=== PATIENT | female | born 1980 | race African-American/Black ===

== ENCOUNTER 2017-05-19 21:07 | Emergency (ER) | payer OTHER ==
[2017-05-19 21:12] VITALS: BP 164/101; PULSE 82; RESP 16; TEMP 98.1; O2SAT 98
[2017-05-19] MEDS ORDERED: diphenhydrAMINE 25 MG CAP PO ONE (21:53)
--- NOTE | 2017-05-19 21:54 | EDPHY ---
H & P Stated Complaint: bilat ear pain and MEADOWS Time Seen by Provider: 05/19/17 21:55 HPI/ROS: HPI: This is a 37-year-old female who presents with Chief Complaint: Bilateral ear pressure Location: Bilateral ear Quality: Pressure Duration: 2 days Signs and Symptoms: No fever, no ear discharge, no ear pain, + nasal congestion , no rhinorrhea, no sinus pressure, headache Timing: Sudden Severity: [id number] Context: Patient reports that there are changes in elevation as she drives to work daily that causes pressure in both her ears over the last 2 days accompanied by sinus pressure. She denies any fever, ear pain, ear discharge. She has not been swimming recently. She denies headaches, neck stiffness. She does not have any seasonal allergies. Modifying Factors: None Comment: ROS: see HPI Constitutional: No fever, no chills, no weight loss Eyes: No blurred vision Respiratory: No shortness of breath, no cough Cardiovascular: No chest pain Gastrointestinal: No nausea, no vomiting, no diarrhea Genitourinary: No dysuria Extremities: No myalgias Neurologic: No weakness, no numbness Skin: No rashes Hematologic: No bruising, no bleeding MEDICAL/SURGICAL/SOCIAL HISTORY: Medical history: Generally healthy. Does not take any regular medications. Surgical history: Bilateral carpal tunnel surgery Social history: Employed CONSTITUTIONAL: Extremely well-appearing adult black female, awake and alert, no obvious distress HEENT: Atraumatic and normocephalic, PERRL, EOMI. 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 Oropharynx clear, no exudate and moist pink mucosa. Airway patent. No lymphadenopathy. No meningismus. Cardiovascular: Normal S1/S2, regular rate, regular rhythm, without murmur rub or gallop. PULMONARY/CHEST: Symmetrical and nontender. Clear to auscultation bilaterally. Good air movement. No accessory muscle usage. ABDOMEN: Soft, nondistended, nontender, no rebound, no guarding, no peritoneal signs, no masses or organomegaly. No CVAT. EXTREMITIES: 2/2 pulses, strength 5/5, no deformities, no clubbing, no cyanosis or edema. NEUROLOGICAL: no focal neuro deficits. GCS 15. SKIN: Warm and dry, no erythema. no rash. Good capillary refill. Source: Patient Exam Limitations: No limitations - Personal History LMP (Females 10-55): Now Current Tetanus/Diphtheria Vaccine: Yes Current Tetanus Diphtheria and Acellular Pertussis (TDAP): Yes - Medical/Surgical History Hx Asthma: Yes Hx Chronic Respiratory Disease: No Hx Diabetes: No Hx Cardiac Disease: No Hx Renal Disease: No Hx Cirrhosis: No Hx Alcoholism: No Hx HIV/AIDS: No Hx Splenectomy or Spleen Trauma: No Other PMH: carptunel surgery bilat - Social History Smoking Status: Never smoked Constitutional: Initial Vital Signs Temperature (C) 36.7 C 05/19/17 21:09 Heart Rate 82 05/19/17 21:09 Respiratory Rate 16 05/19/17 21:09 Blood Pressure 164/101 H 05/19/17 21:09 O2 Sat (%) 98 05/19/17 21:09 Allergies/Adverse Reactions: Penicillins Allergy (Verified 05/19/17 21:12) Home Medications: Medication Instructions Recorded Fluticasone Propionate [Flonase 1 spray NS DAILY #1 spray.susp 05/19/17 Allergy Relief] Multiple Vitamin 05/19/17 P-EPHED HCL/FEXOFENADINE HCL 1 each PO BID #14 05/19/17 [CAMERON-D 12 HOUR TABLET] Medical Decision Making ED Course/Re-evaluation: Given Benadryl No signs of otitis media, otitis externa, cholesteatoma, sinusitis Afebrile. Counseled patient on nasal steroid spray, decongestants, antihistamines. Differential Diagnosis: Differential diagnosis includes but is not limited to otitis media, otitis externa, sinusitis, eustachian tube dysfunction - Data Points Medications Given: Discontinued Medications Diphenhydramine HCl (Benadryl) 25 mg PO EDNOW ONE Stop: 05/19/17 21:54 Last Admin: 05/19/17 21:58 Dose: 25 mg Departure - Departure Disposition: Home, Routine, Self-Care Clinical Impression: Eustachian tube dysfunction Qualifiers: Laterality: bilateral Qualified Code(s): H69.83 - Other specified disorders of Eustachian tube, bilateral Condition: Good Instructions: Antihistamine/Decongestant (By mouth), Pseudoephedrine (By mouth) Referrals: [facility],. [Clinic] - As per Instructions Prescriptions: Fluticasone Propionate [Flonase Allergy Relief] 1 spray NS DAILY #1 spray.susp P-EPHED HCL/FEXOFENADINE HCL [CAMERON-D 12 HOUR TABLET] 1 each PO BID #14
== END 2017-05-19 22:01 | disposition home or self-care (01) ==
DX: H69.83 Other specified disorders of Eustachian tube, bilateral (principal); J45.909 Unspecified asthma, uncomplicated

== ENCOUNTER 2018-01-09 19:44 | Emergency (ER) | payer OTHER ==
[2018-01-09 19:51] VITALS: BP 128/82
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
== END 2018-01-09 20:30 | disposition home or self-care (01) ==
DX: S16.1XXA Strain of muscle, fascia and tendon at neck level, initial encounter (principal); V49.40XA Driver injured in collision with unspecified motor vehicles in traffic accident, initial encounter; Y92.410 Unspecified street and highway as the place of occurrence of the external cause; Y99.8 Other external cause status; Y93.89 Activity, other specified

== ENCOUNTER 2018-03-20 16:31 | Emergency (ER) | payer OTHER ==
[2018-03-20] MEDS ORDERED: IPRATROPIUM/ALBUTEROL 3 ML DEYVIAL IH ONE (17:51)
--- NOTE | 2018-03-20 17:55 | EDPHY ---
H & P Time Seen by Provider: 03/20/18 17:11 HPI/ROS: HPI Shortness of breath, cough. 38-year-old female by private vehicle with her daughter. This patient was taking the [employer] entrance physical examination followed by the written examination. She reports she got through the physical examination and went inside to take the written examination. When she got inside she had a sensation of shortness of breath and started coughing. She also reports that she had a sensation of tickling in her throat and nasal congestion with clear rhinorrhea. She reports that the symptoms in worsened over approximately the next hour. She was able to finish the written examination but when she got home she was not feeling better so she and her daughter came to the emergency department. She does have a history of asthma but states it has been sometime since she has used her albuterol inhaler. She complains of a continued tickling sensation in her throat as well as cough. Denies any ill contacts. No unusual ingestion or other exposure. ROS: Constitutional: No fever, no chills. No weakness. Eyes: No discharge. No changes in vision. ENT: No sore throat. Nasal congestion with clear rhinorrhea. Respiratory: As above. Cardiac: No chest pain, no palpitations. Gastrointestinal: No abdominal pain, no vomiting, no diarrhea. Genitourinary: No hematuria. No dysuria or increased frequency with urination. Musculoskeletal: No back pain. No neck pain. No myalgias or arthralgias. Skin: No rashes. Neurological: No headache. No focal weakness or altered sensation. Past medical history: Bilateral carpal tunnel surgery, asthma. Social history: Nonsmoker. No alcohol. Here with her daughter. Physical Exam: General Appearance: Alert, no distress. Intermittent dry cough. This patient is responding to questions appropriately and in full sentences. This patient appears well-hydrated and well-nourished. Eyes: Pupils equal and round no pallor or injection. No lid edema, erythema or injection. ENT, Mouth: Mucous membranes are moist. The pharyngeal tissues are unremarkable. No edema or swelling. No asymmetry suggestive of abscess. No erythema or exudates. No stridor on auscultation of her neck. No voice changes. No cervical, submandibular, submental lymphadenopathy. Respiratory: There are no retractions, lungs are clear to auscultation with good air movement bilaterally. No tachypnea. Cardiovascular: Regular rate and rhythm. No murmur. Neurological: Motor sensory function is grossly intact. Cranial nerves are normal. Gait is normal. Skin: Warm and dry, no rashes. Musculoskeletal: Neck is supple and nontender. Extremities are symmetrical. All joints range without pain or impingement. Psychiatric: No agitation. No depression. Database: EKG: Imaging: Chest x-ray PA and lateral; the cardiac mediastinal silhouette is unremarkable. No evidence of infiltrate or pneumothorax. No acute cardiopulmonary disease process noted. Interpreted by me. Procedures: Emergency department course: Triage vital signs reviewed. She is borderline tachycardic. Triage vital signs otherwise normal. No tachypnea. Pulse oximetry on room air is 96% on room air. Chest x-ray to be obtained. She will be given an albuterol/Atrovent nebulizer treatment. She refuses steroids. 6:45 p.m., patient re-evaluated. Resting comfortably at this time. Results of her chest x-ray discussed with her. She is feeling better. Repeat pharyngeal exam is normal. Repeat pulmonary exam she is clear on auscultation bilaterally with good air movement. No wheezing or rhonchi. She has an intermittent dry cough. She still has nasal congestion with clear rhinorrhea. She does feel comfortable going home at this time and I feel she is safe for discharge. She does not know where her inhaler is. I will prescribe her a new albuterol inhaler from the emergency department. I have also recommended off over-the- counter cough remedies. Follow-up and return to emergency department precautions discussed with her. All of her questions were answered. She was discharged from the emergency department in good condition with her daughter. Differential Diagnosis: The differential diagnosis on this patient includes but is not limited to reactive airway disease, bronchitis, pneumonitis, upper respiratory infection, allergic reaction. This represents a partial list of diagnoses considered. These considerations are based on history, physical exam, past history, reassessment and diagnostic testing. Smoking Status: Never smoked Constitutional: Initial Vital Signs Temperature (C) 37 C 03/20/18 16:35 Heart Rate 100 03/20/18 16:35 Respiratory Rate 19 03/20/18 16:35 Blood Pressure 131/84 H 03/20/18 16:35 O2 Sat (%) 96 03/20/18 16:35 O2 Delivery Mode Room Air Allergies/Adverse Reactions: Penicillins Allergy (Verified 03/20/18 16:34) Home Medications: Medication Instructions Recorded Fluticasone Propionate [Flonase 1 spray NS DAILY #1 spray.susp 05/19/17 Allergy Relief] Multiple Vitamin 05/19/17 P-EPHED HCL/FEXOFENADINE HCL 1 each PO BID #14 05/19/17 [CAMERON-D 12 HOUR TABLET] Lidocaine [Lidoderm] 1 each TP AD PRN #15 adh..patch 01/09/18 Albuterol 03/20/18 Albuterol [Proventil Inhaler HFA 2 puffs IH Q2-4PRN PRN #1 mdi 03/20/18 (*)] Medical Decision Making - Data Points Medications Given: Discontinued Medications Albuterol Sulfate (Proventil Inh Prepack) 1 mdi TAKEHOME EDNOW ONE Stop: 03/20/18 18:51 Last Admin: 03/20/18 18:58 Dose: 1 mdi Albuterol/Ipratropium (Duoneb) 3 ml IH EDNOW ONE Stop: 03/20/18 17:52 Last Admin: 03/20/18 18:05 Dose: 3 ml Departure - Departure Disposition: Home, Routine, Self-Care Clinical Impression: Acute bronchitis, Upper respiratory infection, Possible allergic reaction Condition: Good Instructions: Albuterol (By breathing), Upper Respiratory Infection (ED), Acute Bronchitis (ED) Additional Instructions: Read and follow provided instructions. Follow-up with your primary care physician in 1-2 days for re-evaluation. Take medication as prescribed. Albuterol inhaler: 1-2 puffs every 2-4 hours as needed for cough or shortness of breath. Discussed with your pharmacist [id number] cough medications such as Robitussin, Dimetapp or NyQuil to help with cough and congestion and to help you sleep. Return to the emergency department for worsening symptoms, difficulty breathing or other serious concerns. Referrals: NONE *PRIMARY CARE P,. [Primary Care Provider] - As per Instructions Prescriptions: Albuterol [Proventil Inhaler HFA (*)] 2 puffs IH Q2-4PRN PRN #1 mdi PRN Reason: Sob/Dyspnea
[2018-03-20] MEDS ORDERED: CYCLOBENZAPRINE 10MG PREPACK#3 BTL TAKEHOME ONE (18:47)
[2018-03-20] MEDS ORDERED: ALBUTEROL INH PREPACK MDI TAKEHOME ONE (18:50)
[2018-03-20 19:09] VITALS: BP 122/75
== END 2018-03-20 19:03 | disposition home or self-care (01) ==
DX: J20.9 Acute bronchitis, unspecified (principal); J06.9 Acute upper respiratory infection, unspecified